=== PATIENT | female | born 1980 | race Caucasian/White ===

== ENCOUNTER 2019-01-06 15:51 | Inpatient (IN) | payer MEDICAID ==
[2019-01-06] MEDS ORDERED: MISOPROSTOL 200 MCG TAB PR ×2 (17:00→22:30)
[2019-01-06] MEDS ORDERED: CARBOPROST 250 MCG INJ IM ×2 (17:00→22:30)
[2019-01-06] MEDS ORDERED: OXYTOCIN 30 UNITS/LR 500 ML IV ×2 (17:00→22:30)
[2019-01-06] MEDS ORDERED: LIDOCAINE 1% (MPF) 30 ML INJ INJ (17:00)
[2019-01-06] MEDS ORDERED: METHYLERGONOVINE 0.2 MG INJ IM ×2 (17:00→22:30)
[2019-01-06] MEDS: LACTATED RINGER'S 1,000 ML IV (17:26)
[2019-01-06] MEDS ORDERED: BUTORPHANOL 2 MG INJ IV (17:30)
[2019-01-06 17:59] LABS: ADD MAN DIFF? NO
[2019-01-06 18:02] LABS: WHITE BLOOD COUNT 10.3 10^3/ul (4.8-10.8)
[2019-01-06 18:02] LABS: BASOPHIL # 0.1 10^3/ul (0.0-0.1); BASOPHILS % 0.7 % (0.0-2.0); EOSINOPHILS # 0.1 10^3/ul (0.0-0.5); EOSINOPHILS % 0.8 % (0.0-7.0); HEMATOCRIT 33.1 % (37.0-47.0); HEMOGLOBIN 10.6 g/dl (12.0-16.0); LYMPHOCYTES # 2.1 10^3/ul (0.8-2.9); LYMPHOCYTES % 20.2 % (15.0-51.0); MEAN CORPUSCULAR HEMOGLOBIN 25.3 pg (29.0-33.0); MONOCYTE # 0.6 10^3/ul (0.3-0.9); MONOCYTES % 5.5 % (0.0-11.0); NEUTROPHIL # 7.4 10^3/ul (1.6-7.5); PLATELET COUNT 257 10^3/UL (140-415); RED BLOOD COUNT 4.19 10^6/ul (4.20-5.40)
[2019-01-06 18:21] LABS: PROTIME 12.3 Sec (11.9-14.9)
[2019-01-06 18:22] LABS: PARTIAL THROMBOPLASTIN TIME 23.4 Sec (23.0-35.0)
[2019-01-06 18:52] LABS: HEPATITIS B SURFACE ANTIGEN NEGATIVE (NEGATIVE)
[2019-01-06] MEDS: OXYTOCIN 30 UNITS/LR 500 ML IV ×2 (19:59→20:16)
[2019-01-06] MEDS: IBUPROFEN 600 MG TAB PO (20:19)
[2019-01-06] MEDS ORDERED: WITCH HAZEL/GLYCERIN PAD PR (22:30)
[2019-01-06] MEDS ORDERED: BENZOCAINE 20% 56 ML SPRAY TOP (22:30)
[2019-01-06] MEDS ORDERED: HYDROCODONE/APAP (5/325) TAB PO (22:30)
[2019-01-06] MEDS: SENNA/DOCUSATE NA (8.6MG/50MG) TAB PO (22:30)
[2019-01-06] MEDS ORDERED: DIBUCAINE 1% 30 GM OINT TOP (22:30)
[2019-01-06] MEDS ORDERED: ACETAMINOPHEN 325 MG TAB PO (22:30)
[2019-01-07] MEDS: LACTATED RINGER'S 1,000 ML IV* ×2 (00:08→06:17)
[2019-01-07] MEDS: IBUPROFEN 600 MG TAB PO ×5 (05:32→23:40)
[2019-01-07 08:21] LABS: ADD MAN DIFF? NO
[2019-01-07 08:32] LABS: WHITE BLOOD COUNT 12.1 10^3/ul (4.8-10.8)
[2019-01-07 08:32] LABS: BASOPHIL # 0.1 10^3/ul (0.0-0.1); BASOPHILS % 0.4 % (0.0-2.0); EOSINOPHILS # 0.1 10^3/ul (0.0-0.5); EOSINOPHILS % 0.5 % (0.0-7.0); HEMATOCRIT 33.2 % (37.0-47.0); HEMOGLOBIN 10.4 g/dl (12.0-16.0); LYMPHOCYTES # 2.1 10^3/ul (0.8-2.9); LYMPHOCYTES % 17.4 % (15.0-51.0); MEAN CORPUSCULAR HGB CONC 31.3 g/dl (32.0-37.0); MEAN CORPUSCULAR VOLUME 79.8 fl (82.0-101.0); MEAN PLATELET VOLUME 10.4 fl (7.4-10.4); MONOCYTE # 0.7 10^3/ul (0.3-0.9); MONOCYTES % 5.7 % (0.0-11.0); NEUTROPHIL # 9.2 10^3/ul (1.6-7.5); NEUTROPHILS % 75.6 % (39.0-77.0); PLATELET COUNT 252 10^3/UL (140-415); RED BLOOD COUNT 4.16 10^6/ul (4.20-5.40)
[2019-01-07] MEDS: SENNA/DOCUSATE NA (8.6MG/50MG) TAB PO ×2 (10:36→20:55)
[2019-01-07 15:21] LABS: RAPID PLASMA REAGIN NONREACTIVE (NR)
[2019-01-08] MEDS: IBUPROFEN 600 MG TAB PO ×3 (05:33→18:00)
[2019-01-08] MEDS: SENNA/DOCUSATE NA (8.6MG/50MG) TAB PO (09:48)
[2019-01-08] MEDS: DIPHTH/TET/ACEL PERTUSS (ADULT) 0.5 ML VIAL IM* (09:49)
== END 2019-01-08 19:00 | disposition home or self-care (01) | DRG 807 ==
LOC: OBT 15:51 → L-D 15:54 → OBT 16:40 → L-D 16:40 → PP1 21:49
PROVIDERS: Obstetrics & Gynecology
PROC: 10E0XZZ Delivery of Products of Conception, External Approach (ICD-10-PCS; principal; 2019-01-06)
DX: O69.81X0 Labor and delivery complicated by cord around neck, without compression, not applicable or unspecified (principal); Z37.1 Single stillbirth; Z3A.38 38 weeks gestation of pregnancy; Z23 Encounter for immunization
CPT/HCPCS: 85025; 85610; 85730; 86592; 86850; 86900; 86901; 87340; 90686; 90715; 99464